=== PATIENT | male | born 1970 | race African-American/Black ===

== ENCOUNTER 2021-01-02 01:49 | Emergency (ER) | payer MEDICAID, SELFPAY ==
[2021-01-02 01:59] VITALS: BP 150/110; BP 157/84; PULSE 80; PULSE 94; RESP 18; TEMP 37.1; O2SAT 97; BMI 69.4
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
[2021-01-02 03:47] VITALS: BP 156/98; PULSE 72; RESP 16
== END 2021-01-02 03:48 | disposition home or self-care (01) ==
LOC: HO.ED 03:41
PROVIDERS: Emergency Provider Emergency Medicine
DX: S00.12XA Contusion of left eyelid and periocular area, initial encounter (principal); V43.52XA Car driver injured in collision with other type car in traffic accident, initial encounter; R04.0 Epistaxis; I10 Essential (primary) hypertension; Y93.89 Activity, other specified; Y92.410 Unspecified street and highway as the place of occurrence of the external cause; Y99.9 Unspecified external cause status
CPT/HCPCS: 99283